=== PATIENT | female | born 1965 | race African-American/Black ===

== ENCOUNTER 2017-08-13 13:13 | Inpatient (IN) | payer OTHER ==
[2017-08-13 15:57] VITALS: BMI 19.6
--- NOTE | 2017-08-13 18:45 | HP ---
CIWA Score - CIWA Score Nausea/Vomitin Muscle Tremors: 3 Anxiety: 3 Agitation: 3 Paroxysmal Sweats: 3 Orientation: 0-Oriented Tacttile Disturbances: 2-Mild Itch/Numbness/Burn Auditory Disturbances: 0-None Visual Disturbances: 0-None Headache: 1-Very Mild CIWA-Ar Total Score: 18 Admission ROS S - [facility] Chief Complaint: alcohol withdrawal sx Allergies/Adverse Reactions: Allergies Allergy/AdvReac Type Severity Reaction Status Date / Time No Known Allergies Allergy Verified 08/13/17 16:53 History of Present Illness: 52 yo f wit h/o chroni calcoholism has been to detox at [facility] several decades ago now presenting with alcohol withdrawal sx requesting [facility] detox. also reports using crack cocaine daily, smokes 1PPD, occasional percocets to come down off the cocaie and chronic back pain. PMHX depresssion, anxiety, and insomnai bipolar do, PTSD , multiple personality traits and schizophrenia not on meds, no suicidal ideation at thsi time, suicide attempts in past. swithdrawal seziures in past many years ago - fx nose at this time. no DTs,has blackouts and recent wt loss is thirsty att this time. Exam Limitations: No Limitations - Ebola screening Have you traveled outside of the country in the last 21 days: No Have you had contact with anyone from an Ebola affected area: No Have you been sick,other than usual withdrawal symptoms: No Do you have a fever: No - Review of Systems Constitutional: Chills, Diaphoresis, Night Sweats, Weakness, Unintentional Wgt. Loss EENT: reports: No Symptoms Reported Respiratory: reports: No Symptoms reported Cardiac: reports: No Symptoms Reported GI: reports: Diarrhea, Nausea, Poor Appetite, Poor Fluid Intake, Indigestion, Abdominal cramping : reports: No Symptoms Reported Musculoskeletal: reports: Back Pain (chronic back pain from disc disease) Integumentary: reports: Flushing, Sweating Neuro: reports: Headache, Numbness, Seizure (last over 10 years ago not on medications), Tingling, Tremors Endocrine: reports: No Symptoms Reported Hematology: reports: No Symptoms Reported Psychiatric: reports: Judgement Intact, Mood/Affect Appropiate, Agitated, Anxious, Depressed Other Systems: Reviewed and Negative Patient History - Patient Medical History Hx Anemia: Yes Hx Asthma: No Hx Chronic Obstructive Pulmonary Disease (COPD): No Hx Cancer: No Hx Cardiac Disorders: Yes (enlarged hearrt) Hx Congestive Heart Failure: No Hx Hypertension: No Hx Hypercholesterolemia: No Hx Pacemaker: No HX Cerebrovascular Accident: No Hx Seizures: Yes (over 10 years qqago not on meds from subustance use, withdrawal ?) Hx Dementia: No Hx Diabetes: No Hx Gastrointestinal Disorders: No Hx Liver Disease: No Hx Genitourinary Disorders: No Hx Sexually Transmitted Disorders: No Hx Renal Disease (ESRD): No Hx Thyroid Disease: No Hx Human Immunodeficiency Virus (HIV): No Hx Hepatitis C: No Hx Depression: Yes Hx Suicide Attempt: Yes (no si at present, as teenager) Hx Bipolar Disorder: Yes Hx Schizophrenia: Yes - Patient Surgical History Past Surgical History: Yes Hx Neurologic Surgery: No Hx Cataract Extraction: No Hx Cardiac Surgery: No Hx Lung Surgery: No Hx Breast Surgery: No Hx Breast Biopsy: No Hx Abdominal Surgery: No Hx Appendectomy: Yes Hx Cholecystectomy: No Hx Genitourinary Surgery: No Hx Section: Yes Hx Orthopedic Surgery: No Hx Hysterectomy: No Anesthesia Reaction: No - PPD History Previous Implant?: No Documented Results: Negative w/o proof Implanted On Prior [facility] Admission?: No PPD to be Administered?: Yes - Reproductive History Patient is a Female of Child Bearing Age (11 -55 yrs old): Yes Patient : No - Smoking Cessation Smoking history: Current every day smoker Have you smoked in the past 12 months: Yes Aproximately how many cigarettes per day: 10 Hx Chewing Tobacco Use: No Initiated information on smoking cessation: Yes 'Breaking Loose' booklet given: 08/13/17 - Substance & Tx. History Hx Alcohol Use: Yes Hx Substance Use: Yes Substance Use Type: Alcohol, Cocaine, Opiates, Prescribed, Tranquilizers Hx Substance Use Treatment: Yes (detox many years ago) - Substances Abused Alcohol Route: Oral Frequency: Daily Amount used: LIQUOR- 3 PINTS, BEER- 5 (40oz) Age of first use: 16 Date of Last Use: 08/13/17 Crack Route: Smoking Frequency: 1-2 times per week Amount used: 3 bags Age of first use: 27 Date of Last Use: 08/11/17 Family Disease History - Family Disease History Family Disease History: Other: Father (addiction), Mother (addiction) Admission Physical Exam [facility] - Vital Signs Vital Signs: Vital Signs - 24 hr 08/13/17 15:53 Temperature 97.7 F Pulse Rate 98 H Respiratory 20 Rate Blood Pressure 104/67 - Physical General Appearance: Yes: Nourished, Appropriately Dressed, Disheveled, Mild Distress, Thin, Tremorous, Irritable, Sweating, Anxious HEENTM: Yes: Within Normal Limits, EOMI, Hearing grossly Normal, Normal ENT Inspection, Normocephalic, Normal Voice, RODRIGO, Pharynx Normal Respiratory: Yes: Within Normal Limits, Chest Non-Tender, Lungs Clear, Normal Breath Sounds Neck: Yes: Within Normal Limits, No masses,lesions,Nodules, Supple, Trachea in good position Breast: Yes: Breast Exam Deferred Cardiology: Yes: Within Normal Limits, Regular Rhythm, Regular Rate, S1, S2 Abdominal: Yes: Normal Bowel Sounds, Non Tender, Flat, Soft, Increased Bowel Sounds Genitourinary: Yes: Within Normal Limits Back: Yes: Within Normal Limits, Normal Inspection Musculoskeletal: Yes: full range of Motion, Gait Steady, Pelvis Stable Extremities: Yes: Normal Capillary Refill, Normal Range of Motion, Non-Tender, Tremors Neurological: Yes: patcher II-XII NML intact, Fully Oriented, Alert, Motor Strength 5/5, Normal Response, Depressed Affect Integumentary: Yes: Normal Color, Warm Lymphatic: Yes: Within Normal Limits - Addiitonal Findings: withdrawal sx, depressed - Diagnostic (1) Alcohol dependence with uncomplicated withdrawal Current Visit: Yes Status: Acute (2) Cocaine dependence Current Visit: Yes Status: Acute Qualifiers: Substance use status: uncomplicated Qualified Code(s): F14.20 - Cocaine dependence, uncomplicated (3) Nicotine dependence Current Visit: Yes Status: Acute Qualifiers: Nicotine product type: cigarettes (4) Chronic back pain Current Visit: Yes Status: Acute Qualifiers: Back pain location: low back pain (5) Schizoaffective disorder Current Visit: Yes Status: Chronic Qualifiers: Schizoaffective disorder type: bipolar Qualified Code(s): F25.0 - Schizoaffective disorder, bipolar type Comment: As per history/self-report.Non compliance with medications and OPD care.Lost to follow up. (6) Seizure Current Visit: Yes Status: Acute Cleared for Admission [facility] - Detox or Rehab [facility] Level of Care: Medically Managed [facility] Alcohol Content Breath Alcohol Content: 0.086 Urine Pregancy Test - Result Urine Test Results: Negative- NO Line Present Urine Drug Screen - Results Drug Screen Negative: No Urine Drug Screen Results: HELADIO-Cocaine
[2017-08-13] MEDS ORDERED: MENTHOL/PHENOL 1 EACH UD MM PRN (18:50)
[2017-08-13] MEDS ORDERED: guaiFENesin/D-METHORPHAN HB 10 ML UNIT-DOSE CUPS PO PRN (18:50)
[2017-08-13] MEDS ORDERED: LOPERAMIDE HCL 2 MG CAPSULE PO PRN (18:50)
[2017-08-13] MEDS ORDERED: hydrOXYzine PAMOATE 50 MG CAPSULE (FP) PO PRN (18:50)
[2017-08-13] MEDS ORDERED: P-EPHED 60MG/TRIPROLIDI 2.5MG TABLET PO PRN (18:50)
[2017-08-13] MEDS ORDERED: NICOTINE POLACRILEX 2 MG GUM BC PRN (18:50)
[2017-08-13] MEDS ORDERED: MAGNESIUM HYDROX 2400MG/30ML ORAL SUSPENSION 30 ML CUP PO PRN (18:50)
[2017-08-13] MEDS ORDERED: IBUPROFEN 400 MG TABLET (FP) PO PRN (18:50)
[2017-08-13] MEDS ORDERED: chlordiazePOXIDE HCL 25 MG CAPSULE PO PRN (18:50)
[2017-08-13] MEDS ORDERED: ACETAMINOPHEN 325 MG TABLET (FP) PO PRN (18:50)
[2017-08-13] MEDS ORDERED: MAG HYDROX/AL HYDROX/SIMETH 30 ML UNIT-DOSE CUP PO PRN (18:50)
[2017-08-13] MEDS ORDERED: MAGNESIUM CITRATE 300 ML BOTTLE PO PRN (18:50)
[2017-08-13] MEDS ORDERED: ONDANSETRON *ODT* 4 MG TABLET SL PRN (18:54)
[2017-08-13] MEDS ORDERED: ONDANSETRON *ODT* 4 MG TABLET SL ONE (19:15)
[2017-08-13] MEDS ORDERED: chlordiazePOXIDE HCL 25 MG CAPSULE PO ONE (19:15)
[2017-08-13] MEDS: PANTOPRAZOLE 40 MG TABLET (FP) PO SCH (20:30)
[2017-08-13] MEDS: NICOTINE 14 MG/24 HOURS TOPICAL PATCH TD SCH (20:31)
[2017-08-13] MEDS: CYCLOBENZAPRINE HCL 10 MG TABLET (FP) PO SCH (22:07)
[2017-08-13] MEDS: THIAMINE HCL 100 MG TABLET (FP) PO SCH (22:07)
[2017-08-13] MEDS: chlordiazePOXIDE HCL 25 MG CAPSULE PO SCH (22:07)
[2017-08-13 23:13] LABS: URINE APPEARANCE CLEAR; URINE BILIRUBIN NEGATIVE (NEGATIVE); URINE BLOOD NEGATIVE (NEGATIVE); URINE COLOR STRAW; URINE GLUCOSE (UA) NEGATIVE (NEGATIVE); URINE KETONE NEGATIVE (NEGATIVE); URINE NITRITE NEGATIVE (NEGATIVE); URINE PROTEIN NEGATIVE (NEGATIVE); URINE UROBILINOGEN NEGATIVE mg/dL (0.2-1.0)
[2017-08-14] MEDS: chlordiazePOXIDE HCL 25 MG CAPSULE PO SCH ×4 (05:58→22:07)
[2017-08-14] MEDS: CYCLOBENZAPRINE HCL 10 MG TABLET (FP) PO SCH ×3 (05:59→22:07)
[2017-08-14 10:09] LABS: MCH 29.9 pg (25.7-33.7); MCHC 32.6 g/dl (32.0-36.0); MEAN CELL VOLUME 91.8 fl (80-96); MEAN PLT VOLUME 8.1 fl (7.5-11.1); PLATELET COUNT 303 K/MM3 (134-434); RDW 14.5 % (11.6-15.6); WHITE BLOOD COUNT 4.7 K/mm3 (4.0-10.0)
[2017-08-14 10:15] LABS: URINE LEUK ESTERASE Negative (NEGATIVE)
[2017-08-14] MEDS: NICOTINE 14 MG/24 HOURS TOPICAL PATCH TD SCH (10:27)
[2017-08-14] MEDS: PRENATAL VITAMINS W/ FOLIC ACID TABLET (FP) PO SCH (10:28)
[2017-08-14] MEDS: PANTOPRAZOLE 40 MG TABLET (FP) PO SCH (10:28)
[2017-08-14 10:34] LABS: ALBUMIN 3.3 g/dl (3.4-5.0); ALK PHOS 63 U/L (45-117); ANION GAP 8 (8-16); BILIRUBIN,TOTAL 0.4 mg/dL (0.2-1.0); CALCIUM 9.1 mg/dL (8.5-10.1); CO2 27 mmol/L (21-32); CREATININE 0.7 mg/dL (0.55-1.02); GLUCOSE,RANDOM 94 mg/dL (74-106); SGOT/AST 13 U/L (15-37); SGPT/ALT 24 U/L (12-78)
--- NOTE | 2017-08-14 12:03 | PN ---
S CIWA - CIWA Score Nausea/Vomitin-No Nausea/No Vomiting Muscle Tremors: 4-Moderate,w/Arms Extend Anxiety: 4-Mod. Anxious/Guarded Agitation: 4-Moderately Restless Paroxysmal Sweats: 3 Orientation: 0-Oriented Tacttile Disturbances: 0-None Auditory Disturbances: 0-None Visual Disturbances: 0-None Headache: 0-None Present CIWA-Ar Total Score: 15 BHS Progress Note (SOAP) Subjective: irritable sweats shakes chills body aches Objective: 08/14/17 12:02 Vital Signs Temperature 97.9 F 08/14/17 09:33 Pulse Rate 83 08/14/17 09:33 Respiratory Rate 18 08/14/17 09:33 Blood Pressure 123/93 08/14/17 09:33 O2 Sat by Pulse Oximetry (%) Laboratory Tests 08/13/17 08/14/17 08/14/17 23:00 07:00 07:00 WBC 4.7 RBC 4.12 Hgb 12.3 Hct 37.8 MCV 91.8 MCH 29.9 MCHC 32.6 RDW 14.5 Plt Count 303 MPV 8.1 Sodium 142 Potassium 3.9 Chloride 107 Carbon Dioxide 27 Anion Gap 8 BUN 11 Creatinine 0.7 Creat Clearance w eGFR > 60 Random Glucose 94 Calcium 9.1 Total Bilirubin 0.4 AST 13 L ALT 24 Alkaline Phosphatase 63 Total Protein 6.0 L Albumin 3.3 L Urine Color Straw Urine Appearance Clear Urine pH 6.0 Ur Specific [place] 1.002 Urine Protein Negative Urine Glucose (UA) Negative Urine Ketones Negative Urine Blood Negative Urine Nitrite Negative Urine Bilirubin Negative Urine Urobilinogen Negative Ur Leukocyte Esterase Negative aaox3 ambulating no acute distress Assessment: 08/14/17 12:02 withdrawal sx Plan: continue detox increase fluids
--- NOTE | 2017-08-14 12:51 | PN ---
[facility] Progress Note Note: Pt. approached by advertising copywriter bedside. Refused to be seen by Psychiatric Nurse Practitioner.
[2017-08-14 14:21] LABS: SICKLE CELL SCREEN NEGATIVE (NEGATIVE)
--- NOTE | 2017-08-14 16:13 | CONSULT ---
[facility] Psychiatric Consult - Data Date of interview: 08/14/17 Admission source: [facility] Identifying data: Readmission to [facility] for this 52 y/o AA female seeking detox treatment on for alcohol,cocaine and opiate dependence.Patient is ,a mother of three,domiciled,unemployed and supported on SSI benefits. Substance Abuse History: Confirmed by patient in this interview.See current [facility] report for details. Smoking history: Current every day smoker. Have you smoked in the past 12 months: Yes. Aproximately how many cigarettes per day: 10. Hx Chewing Tobacco Use: No. Initiated information on smoking cessation: Yes. 'Breaking Loose' booklet given: 08/13/17. - Substance & Tx. History. Hx Alcohol Use: Yes. Hx Substance Use: Yes. Substance Use Type: Alcohol, Cocaine , Opiates, Prescribed, Tranquilizers. Hx Substance Use Treatment: Yes (detox many years ago). - Substances Abused. Alcohol. Route: Oral. Frequency: Daily. Amount used: LIQUOR- 3 PINTS, BEER- 5 (40oz). Age of first use: 16. Date of Last Use: 08/13/17. Crack. Route: Smoking. Frequency: 1-2 times per week. Amount used: 3 bags. Age of first use: 27. Date of Last Use: Medical History: Anemia,lower back pain,GERD,gastric ulcer and a remote history of seizures (withdrawal-related). Psychiatric History: Patient is a hostile and argumentative historian." Why don' t you get my records instead of asking me these ridiculous questions ? " Ms Bateman admits to a history of multiple psychiatric hospitalizations (mostly in [place]).Diagnosed with PTSD,Multiple Personality Disorder,Schizoaffective Disorder (self-report).Used to be on trazodone,seroquel and lithium.Non- adherent to OPD care + medications for more than six months.No affiliation with any OPD care providers.Patient admits to a remote history of one suicide attempt (details not offered) during adolescence. Physical/Sexual Abuse/Trauma History: Patient declines to discuss this domain. Additional Comment: Urine Drug Screen Results: HELADIO-Cocaine.Noted. Mental Status Exam - Mental Status Exam Alert and Oriented to: Time, Place, Person Cognitive Function: Good Patient Appearance: Well Groomed Mood: Angry, Hostile, Withdrawn, Irritable Affect: Mood Congruent Patient Behavior: Fatigued, Uncooperative (argumentative), Guarded Speech Pattern: Clear Voice Loudness: Normal Thought Process: Goal Oriented Thought Disorder: Not Present Hallucinations: Denies Suicidal Ideation: Denies Homicidal Ideation: Denies Insight/Judgement: Poor Sleep: Fair Appetite: Good Muscle strength/Tone: Normal Gait/Station: Normal Psychiatric Findings - Problem List ([place] 1, 2,3) (1) Alcohol dependence with uncomplicated withdrawal Current Visit: Yes Status: Acute (2) Cocaine dependence Current Visit: Yes Status: Acute Qualifiers: Substance use status: uncomplicated Qualified Code(s): F14.20 - Cocaine dependence, uncomplicated (3) Nicotine dependence Current Visit: Yes Status: Acute Qualifiers: Nicotine product type: cigarettes (4) Substance induced mood disorder Current Visit: Yes Status: Acute (5) Schizoaffective disorder Current Visit: Yes Status: Chronic Qualifiers: Schizoaffective disorder type: bipolar Qualified Code(s): F25.0 - Schizoaffective disorder, bipolar type Comment: As per history/self-report.Non compliance with medications and OPD care.Lost to follow up. - Initial Treatment Plan Initial Treatment Plan: Psychoeducation.Detoxification.Observation.
--- NOTE | 2017-08-14 17:30 | PN ---
Psychiatric Progress Note Vital Signs: Vital Signs Period Temp Pulse Resp BP Sys/Whelan Pulse Ox Last 24 Hr 97.3 F-99.5 F 66-92 16-20 110-140/75-93 Current Medications: Active Medications Generic Name Dose Route Start Last Admin Trade Name Freq PRN Reason Stop Dose Admin Acetaminophen 650 mg 08/13/17 18:50 08/13/17 20:29 Tylenol - PO 650 mg Q4H PRN Administration FEVER OR PAIN Al Hydroxide/Mg Hydroxide 30 ml 08/13/17 18:50 Mylanta Oral Suspension - PO Q6H PRN DYSPEPSIA Chlordiazepoxide HCl 25 mg 08/14/17 23:00 Librium - PO 08/15/17 17:01 [id number] ANDRADE Chlordiazepoxide HCl 15 mg 08/15/17 23:00 Librium - PO 08/16/17 17:01 [id number] ANDRADE Chlordiazepoxide HCl 25 mg 08/13/17 18:50 08/13/17 20:30 Librium - PO 08/16/17 18:49 25 mg Q4H PRN Administration WITHDRAWAL(CONT SUBST) Chlordiazepoxide HCl 10 mg 08/16/17 23:00 Librium - PO 08/17/17 17:01 [id number] ANDRADE Cyclobenzaprine HCl 10 mg 08/13/17 22:00 08/14/17 14:11 Flexeril - PO 10 mg TID ANDRADE Administration Eucalyptus/Menthol/Phenol/Sorbitol 1 each 08/13/17 18:50 Cepastat Lozenge - MM Q4H PRN SORE THROAT Guaifenesin 10 ml 08/13/17 18:50 Robitussin Dm - PO Q6H PRN COUGH Hydroxyzine Pamoate 50 mg 08/13/17 18:50 Vistaril - PO Q4H PRN AGITATION Ibuprofen 400 mg 08/13/17 18:50 Motrin - PO Q6H PRN SEVERE PAIN Loperamide HCl 4 mg 08/13/17 18:50 Imodium - PO Q6H PRN DIARRHEA Magnesium Citrate 300 ml 08/13/17 18:50 Citroma - PO Q48H PRN CONSTIPATION Magnesium Hydroxide 30 ml 08/13/17 18:50 Milk Of Magnesia - PO DAILY PRN CONSTIPATION Nicotine 14 mg 08/13/17 19:00 08/14/17 10:27 Nicoderm Patch - TD 14 mg DAILY ANDRADE Administration Nicotine Polacrilex 2 mg 08/13/17 18:50 Nicorette Gum - BC Q2H PRN NICOTINE REPLACEMENT RX Ondansetron HCl 8 mg 08/13/17 18:54 Zofran Odt - SL Q6H PRN NAUSEA AND/OR VOMITING Pantoprazole Sodium 40 mg 08/13/17 19:00 08/14/17 10:28 Protonix - PO 40 mg DAILY ANDRADE Administration Multivit/Folic Acid/Iron 1 tab 08/14/17 10:00 08/14/17 10:28 Vitamins ([facility]) - PO 1 tab DAILY ANDRADE Administration Pseudoephedrine/Triprolidine 1 combo 08/13/17 18:50 Actifed - PO TID PRN NASAL CONGESTION Thiamine HCl 100 mg 08/13/17 22:00 08/13/17 22:07 Vitamin B1 - PO 100 mg HS ANDRADE Administration
[2017-08-14] MEDS: THIAMINE HCL 100 MG TABLET (FP) PO SCH (22:07)
[2017-08-15] MEDS: chlordiazePOXIDE HCL 25 MG CAPSULE PO SCH ×3 (05:43→16:51)
[2017-08-15] MEDS: CYCLOBENZAPRINE HCL 10 MG TABLET (FP) PO SCH ×3 (05:43→22:07)
--- NOTE | 2017-08-15 08:00 | EKG ---
Test Reason : Blood Pressure : / mmHG Vent. Rate : 087 BPM Atrial Rate : 087 BPM P-R Int : 186 ms QRS Dur : 086 ms QT Int : 372 ms P-R-T Axes : 077 035 044 degrees QTc Int : 447 ms NORMAL SINUS RHYTHM NORMAL ECG NO PREVIOUS ECGS AVAILABLE Confirmed by MD Keenan Daniel ([id number]) on 08/14/2017 3:03:42 PM Also confirmed by MD Keenan Daniel [id number]), editorial manager RICK ARANGO ([id number]) on 08/15/2017 7:59:33 AM Referred By: ZHAO BARLOW Confirmed By:Rick Keenan MD
--- NOTE | 2017-08-15 10:56 | PN ---
[facility] CIWA - CIWA Score Nausea/Vomitin-No Nausea/No Vomiting Muscle Tremors: 3 Anxiety: 3 Agitation: 3 Paroxysmal Sweats: 3 Orientation: 0-Oriented Tacttile Disturbances: 0-None Auditory Disturbances: 0-None Visual Disturbances: 0-None Headache: 0-None Present CIWA-Ar Total Score: 12 S Progress Note (SOAP) Subjective: groggy sweats chills Objective: 08/15/17 10:55 Vital Signs Temperature 98.1 F 08/15/17 10:14 Pulse Rate 97 H 08/15/17 10:14 Respiratory Rate 20 08/15/17 10:14 Blood Pressure 125/81 08/15/17 10:14 O2 Sat by Pulse Oximetry (%) Laboratory Tests 08/13/17 08/14/17 08/14/17 23:00 07:00 07:00 WBC 4.7 RBC 4.12 Hgb 12.3 Hct 37.8 MCV 91.8 MCH 29.9 MCHC 32.6 RDW 14.5 Plt Count 303 MPV 8.1 Sickle Cell Screen Negative Sodium 142 Potassium 3.9 Chloride 107 Carbon Dioxide 27 Anion Gap 8 BUN 11 Creatinine 0.7 Creat Clearance w eGFR > 60 Random Glucose 94 Calcium 9.1 Total Bilirubin 0.4 AST 13 L ALT 24 Alkaline Phosphatase 63 Total Protein 6.0 L Albumin 3.3 L Urine Color Straw Urine Appearance Clear Urine pH 6.0 Ur Specific [place] 1.002 Urine Protein Negative Urine Glucose (UA) Negative Urine Ketones Negative Urine Blood Negative Urine Nitrite Negative Urine Bilirubin Negative Urine Urobilinogen Negative Ur Leukocyte Esterase Negative RPR Titer 08/14/17 07:00 WBC RBC Hgb Hct MCV MCH MCHC RDW Plt Count MPV Sickle Cell Screen Sodium Potassium Chloride Carbon Dioxide Anion Gap BUN Creatinine Creat Clearance w eGFR Random Glucose Calcium Total Bilirubin AST ALT Alkaline Phosphatase Total Protein Albumin Urine Color Urine Appearance Urine pH Ur Specific [place] Urine Protein Urine Glucose (UA) Urine Ketones Urine Blood Urine Nitrite Urine Bilirubin Urine Urobilinogen Ur Leukocyte Esterase RPR Titer Nonreactive aaox3 ambulating no acute distress Assessment: 08/15/17 10:56 withdrawals sx Plan: continue detox increase fluids
[2017-08-15] MEDS: NICOTINE 14 MG/24 HOURS TOPICAL PATCH TD SCH (11:12)
[2017-08-15] MEDS: PRENATAL VITAMINS W/ FOLIC ACID TABLET (FP) PO SCH (11:12)
[2017-08-15] MEDS: PANTOPRAZOLE 40 MG TABLET (FP) PO SCH (11:12)
[2017-08-15] MEDS: THIAMINE HCL 100 MG TABLET (FP) PO SCH (22:07)
[2017-08-15] MEDS: chlordiazePOXIDE 5 MG CAPSULE PO SCH (22:07)
[2017-08-16] MEDS: CYCLOBENZAPRINE HCL 10 MG TABLET (FP) PO SCH ×3 (05:52→22:18)
[2017-08-16] MEDS: chlordiazePOXIDE 5 MG CAPSULE PO SCH ×3 (05:52→17:05)
[2017-08-16] MEDS: PRENATAL VITAMINS W/ FOLIC ACID TABLET (FP) PO SCH (10:49)
[2017-08-16] MEDS: PANTOPRAZOLE 40 MG TABLET (FP) PO SCH (10:49)
[2017-08-16] MEDS: NICOTINE 14 MG/24 HOURS TOPICAL PATCH TD SCH (10:49)
[2017-08-16] MEDS ORDERED: diphenhydrAMINE HCL 50 MG CAPSULE PO PRN (10:54)
--- NOTE | 2017-08-16 11:23 | PN ---
[facility] Progress Note (SOAP) Subjective: sweats interrupted sleep i need something to sleep Objective: 08/16/17 11:21 Vital Signs Temperature 98.2 F 08/16/17 09:57 Pulse Rate 99 H 08/16/17 09:57 Respiratory Rate 18 08/16/17 09:57 Blood Pressure 122/78 08/16/17 09:57 O2 Sat by Pulse Oximetry (%) aaox3 ambulating no acute distress Assessment: 08/16/17 11:21 withdrawal sx Plan: continue detox increase fluids psych ordered for sleeping aide d/c in am
[2017-08-16] MEDS ORDERED: LIDOCAINE 5% TOPICAL PATCH TP ONE (14:37)
[2017-08-16] MEDS ORDERED: LIDOCAINE PATCH REMOVAL MC SCH (22:00)
[2017-08-16] MEDS: THIAMINE HCL 100 MG TABLET (FP) PO SCH (22:18)
[2017-08-16] MEDS: chlordiazePOXIDE HCL 10 MG CAPSULE PO SCH (22:18)
[2017-08-17] MEDS: chlordiazePOXIDE HCL 10 MG CAPSULE PO SCH ×2 (05:31→13:12)
[2017-08-17] MEDS: CYCLOBENZAPRINE HCL 10 MG TABLET (FP) PO SCH (05:31)
[2017-08-17 06:27] VITALS: BP 120/57; PULSE 95; TEMP 97.7
--- NOTE | 2017-08-17 08:43 | DS ---
[facility] Detox Discharge Summary Admission Date: 08/13/17 Discharge Date: 08/17/17 - History Present History: Alcohol Dependence, Cocaine Dependence - Physical Exam Results Vital Signs: Vital Signs Temperature 97.7 F 08/17/17 06:00 Pulse Rate 95 H 08/17/17 06:00 Respiratory Rate 18 08/17/17 06:00 Blood Pressure 120/57 08/17/17 06:00 O2 Sat by Pulse Oximetry (%) - Treatment Hospital Course: Detox Protocol Followed, Detoxed Safely, Responded well, Discharged Condition Good, Rehab Referral Accepted - Medication Discharge Medications: Ambulatory Orders Lansoprazole [Prevacid] 30 mg PO DAILY 08/13/17 [place] Carbonate [Eskalith -] 150 mg PO BID 08/13/17 Quetiapine Fumarate [Seroquel -] 150 mg PO HS 08/13/17 Trazodone HCl [Desyrel -] 50 mg PO HS 08/13/17 - Diagnosis (1) Alcohol dependence with uncomplicated withdrawal Current Visit: Yes Status: Chronic (2) Chronic back pain Current Visit: Yes Status: Chronic Qualifiers: Back pain location: low back pain (3) Cocaine dependence Current Visit: Yes Status: Chronic Qualifiers: Substance use status: uncomplicated Qualified Code(s): F14.20 - Cocaine dependence, uncomplicated (4) Nicotine dependence Current Visit: Yes Status: Chronic Qualifiers: Nicotine product type: cigarettes Substance use status: uncomplicated Qualified Code(s): F17.210 - Nicotine dependence, cigarettes, uncomplicated (5) Seizure Current Visit: Yes Status: Acute (6) Substance induced mood disorder Current Visit: Yes Status: Acute (7) Schizoaffective disorder Current Visit: Yes Status: Chronic Qualifiers: Schizoaffective disorder type: bipolar Qualified Code(s): F25.0 - Schizoaffective disorder, bipolar type - AMA Did Patient Leave Against Medical Advice: No
[2017-08-17] MEDS: PANTOPRAZOLE 40 MG TABLET (FP) PO SCH (09:28)
[2017-08-17] MEDS: PRENATAL VITAMINS W/ FOLIC ACID TABLET (FP) PO SCH (09:28)
[2017-08-17] MEDS: NICOTINE 14 MG/24 HOURS TOPICAL PATCH TD SCH (09:36)
== END 2017-08-17 09:30 | disposition home or self-care (01) | DRG 774 ==
LOC: YASAS 13:13 → Y6N 19:41
PROVIDERS: ADMIT Internal Medicine; ATTEND Internal Medicine
PROC: HZ2ZZZZ Detoxification Services for Substance Abuse Treatment (ICD-10-PCS; principal; 2017-08-13)
DX: F10.230 Alcohol dependence with withdrawal, uncomplicated (principal); F14.20 Cocaine dependence, uncomplicated; F17.210 Nicotine dependence, cigarettes, uncomplicated; F25.0 Schizoaffective disorder, bipolar type; F19.24 Other psychoactive substance dependence with psychoactive substance-induced mood disorder; G40.909 Epilepsy, unspecified, not intractable, without status epilepticus; M54.5 Low back pain; G89.29 Other chronic pain
CPT/HCPCS: 36415; 80053; 81003; 85027; 85660; 86593; 93005; 93010

== ENCOUNTER 2020-12-10 16:41 | Inpatient (IN) | payer OTHER ==
[2020-12-10 18:06] VITALS: BMI 24.1
[2020-12-10] MEDS ORDERED: ACETAMINOPHEN 325 MG TABLET (FP) PO PRN ×2 (19:52)
[2020-12-10] MEDS ORDERED: MAGNESIUM CITRATE 300 ML BOTTLE PO PRN (19:52)
[2020-12-10] MEDS ORDERED: IBUPROFEN 400 MG TABLET (FP) PO PRN (19:52)
[2020-12-10] MEDS ORDERED: NICOTINE POLACRILEX 2 MG GUM BUC PRN (19:52)
[2020-12-10] MEDS ORDERED: MAG HYDROX/AL HYDROX/SIMETH 30 ML UNIT-DOSE CUP PO PRN (19:52)
[2020-12-10] MEDS ORDERED: hydrOXYzine PAMOATE 25 MG CAPSULE (FP) PO PRN (19:52)
[2020-12-10] MEDS ORDERED: MENTHOL/PHENOL 1 EACH UD MM PRN (19:52)
[2020-12-10] MEDS ORDERED: BISMUTH SUBSALICYLATE 524 MG/30 ML UD PO PRN (19:52)
[2020-12-10] MEDS ORDERED: ONDANSETRON *ODT* 4 MG TABLET SL PRN (19:52)
[2020-12-10] MEDS ORDERED: MAGNESIUM HYDROX 2400MG/30ML ORAL SUSPENSION 30 ML CUP PO PRN (19:52)
[2020-12-10] MEDS ORDERED: METHOCARBAMOL 500 MG TABLET PO PRN (19:52)
[2020-12-10] MEDS ORDERED: chlordiazePOXIDE HCL 25 MG CAPSULE PO PRN (20:10)
[2020-12-10] MEDS ORDERED: MELATONIN 5 MG TABLETS PO SCH (22:00)
[2020-12-10] MEDS ORDERED: THIAMINE HCL 100 MG TABLET (FP) PO SCH (22:00)
[2020-12-11] MEDS: chlordiazePOXIDE HCL 25 MG CAPSULE PO SCH ×4 (00:14→17:50)
[2020-12-11] MEDS ORDERED: PANTOPRAZOLE 40 MG TABLET PO SCH (10:00)
[2020-12-11] MEDS ORDERED: PRENATAL VITAMINS W/ FOLIC ACID TABLET (FP) PO SCH (10:00)
[2020-12-11] MEDS ORDERED: BACITRACIN 15 GM TUBE TOPICAL OINTMENT TP SCH (10:30)
[2020-12-11 11:43] LABS: HEMOGLOBIN 11.7 GM/dL (10.7-15.3); MCH 30.4 pg (25.7-33.7); MCHC 33.4 g/dl (32.0-36.0); MEAN CELL VOLUME 91.2 fl (80-96); MEAN PLT VOLUME 8.3 fl (7.5-11.1); PLATELET COUNT 286 K/MM3 (134-434); POTASSIUM 3.9 mmol/L (3.5-5.1); RBC 3.84 M/mm3 (3.60-5.2); RDW 15.1 % (11.6-15.6); WHITE BLOOD COUNT 4.5 K/mm3 (4.0-10.0)
[2020-12-11 11:44] LABS: CALCIUM 9.2 mg/dL (8.5-10.1)
[2020-12-11 11:45] LABS: ALBUMIN 3.1 g/dl (3.4-5.0); BLOOD UREA NITROGEN 11.3 mg/dL (7-18)
[2020-12-11 11:48] LABS: CREATININE 0.8 mg/dL (0.55-1.3)
[2020-12-11 11:50] LABS: BILIRUBIN,TOTAL 0.9 mg/dL (0.2-1); TOT PROT 5.7 g/dl (6.4-8.2)
[2020-12-11] MEDS ORDERED: BACITRACIN 0.9 GM PACKET TP SCH (12:00)
[2020-12-11 12:24] LABS: SICKLE CELL SCREEN NEGATIVE (NEGATIVE)
[2020-12-11 13:55] VITALS: BP 127/80; PULSE 66; TEMP 97.3
[2020-12-12] MEDS ORDERED: chlordiazePOXIDE HCL 10 MG CAPSULE PO SCH (05:00)
[2020-12-13] MEDS ORDERED: chlordiazePOXIDE HCL 10 MG CAPSULE PO PRN
[2020-12-13] MEDS ORDERED: chlordiazePOXIDE HCL 10 MG CAPSULE PO SCH (05:00)
[2020-12-14] MEDS ORDERED: chlordiazePOXIDE HCL 10 MG CAPSULE PO ONE (05:00)
== END 2020-12-11 19:49 | disposition left against medical advice (07) | DRG 770 ==
LOC: YASAS 16:41 → Y6N 20:15 → Y3N 12-11 18:18 → Y6N 12-11 19:33
PROVIDERS: ADMIT Allergy & Immunology; ATTEND Allergy & Immunology
PROC: HZ2ZZZZ Detoxification Services for Substance Abuse Treatment (ICD-10-PCS; principal; 2020-12-10)
DX: F10.230 Alcohol dependence with withdrawal, uncomplicated (principal); F14.20 Cocaine dependence, uncomplicated; F12.20 Cannabis dependence, uncomplicated; F17.210 Nicotine dependence, cigarettes, uncomplicated; F31.9 Bipolar disorder, unspecified; Z87.828 Personal history of other (healed) physical injury and trauma; Z86.69 Personal history of other diseases of the nervous system and sense organs
CPT/HCPCS: 36415; 80053; 81025; 85027; 85660; 86780; C9803; U0003; U0005